=== PATIENT | female | born 1945 | race Caucasian/White ===

== ENCOUNTER 2018-08-14 07:29 | Outpatient (CLI) | payer MEDICARE ==
[~2018-08-14 07:29] MED LIST: ALLO100T30 PO; AMLO10TA8 PO; ASPI81TA45 PO; CHOL5000 PO; GLIP10TA13 PO; OXYC1TAB7 PO
== END 2018-08-14 23:59 | disposition home or self-care (01) ==
LOC: ROC 07:29
PROVIDERS: ATTEND Radiology Radiation Oncology
DX: Z02.9 Encounter for administrative examinations, unspecified (principal)